=== PATIENT | female | born 1955 | race Caucasian/White ===

== ENCOUNTER → 2017-01-30 | Outpatient (CLI) | payer BC | LOC: MC.RAD 13:43 | DX: Z12.31 Encounter for screening mammogram for malignant neoplasm of breast (principal); N64.89 Other specified disorders of breast ==

== ENCOUNTER → 2017-02-05 | Outpatient (CLI) | payer BC | LOC: MC.RAD 10:00 | DX: R92.2 Inconclusive mammogram (principal); N63.0 Unspecified lump in unspecified breast ==